=== PATIENT | female | born 1980 | race Caucasian/White ===

== ENCOUNTER 2019-09-12 15:10 | Inpatient (IN) | payer BC ==
[2019-09-12] MEDS ORDERED: SODIUM CHLORIDE 0.9% 500 ML 500 ML IV STA (15:40)
[2019-09-12] MEDS ORDERED: SODIUM CHLORIDE 0.9% 1,000 ML IV STA ×2 (15:40)
[2019-09-12 16:04] LABS: Basophils # (A) 0.1 k/uL (0-0.2); Basophils % (A) 0 %; Eosinophils # (A) 0.2 k/uL (0-0.7); Eosinophils % (A) 1 %; HCT 38.9 % (34.0-46.0); HGB 12.6 gm/dL (11.4-16.0); Lymphocytes % (A) 10 %; MCH 29.2 pg (25.0-35.0); MCHC 32.4 g/dL (31.0-37.0); MCV 90.2 fL (80.0-100.0); Monocytes # (A) 0.9 k/uL (0-1.0); Monocytes % (A) 4 %; Neutrophils # (A) 16.1 k/uL (1.3-7.7); Neutrophils % (A) 82 %; Platelet Count 483 k/uL (150-450); RBC 4.31 m/uL (3.80-5.40); RDW 12.5 % (11.5-15.5); WBC 19.7 k/uL (3.8-10.6)
[2019-09-12 16:18] LABS: ALT 23 U/L (4-34); AST 25 U/L (14-36); African American GFR (CKD) >90 (>60 ml/min/1.73 sqM); Albumin 3.8 g/dL (3.5-5.0); Alkaline Phosphatase 94 U/L (38-126); Anion Gap 9 mmol/L; Blood Urea Nitrogen 8 mg/dL (7-17); Calcium 8.9 mg/dL (8.4-10.2); Carbon Dioxide 24 mmol/L (22-30); Chloride 103 mmol/L (98-107); Glucose 82 mg/dL (74-99); Non-African American GFR(CKD) >90 (>60 ml/min/1.73 sqM); Potassium 4.7 mmol/L (3.5-5.1); Sodium 136 mmol/L (137-145); Total Bilirubin 0.4 mg/dL (0.2-1.3); Total Protein 7.8 g/dL (6.3-8.2)
[2019-09-12 16:25] LABS: Appearance,Urine Clear (Clear); Bilirubin,Urine Negative (Negative); Blood,Urine Moderate (Negative); Color,Urine Yellow; Glucose,Urine (UA) Negative (Negative); Ketones,Urine Negative (Negative); Leukocyte Esterase,Urine Large (Negative); Nitrite,Urine Negative (Negative); Protein,Urine 1+ (Negative); Specific Gravity,Urine 1.015 (1.001-1.035)
[2019-09-12 16:27] LABS: Hyaline Casts,Urine 1 /lpf (0-2); Mucus,Urine Few /hpf; RBC,Urine 1 /hpf (0-5); Squamous Epithelial Cell,Urine 3 /hpf (0-4); WBC,Urine 3 /hpf (0-5)
[2019-09-12] MEDS ORDERED: SODIUM CHLORIDE 0.9% 500 ML 500 ML IV ONE (16:34)
--- NOTE | 2019-09-12 17:21 | XR ---
EXAMINATION TYPE: XR chest 2V DATE OF EXAM: 09/12/2019 COMPARISON: None HISTORY: 38-year-old female with fever TECHNIQUE: PA and lateral views FINDINGS: The cardiomediastinal silhouette, aorta, and pulmonary vasculature are within normal limits. Lungs an d pleural spaces are clear. IMPRESSION: No acute cardiopulmonary process.
--- NOTE | 2019-09-12 17:21 | CT ---
EXAMINATION TYPE: CT abdomen pelvis w con DATE OF EXAM: 09/12/2019 COMPARISON: NONE HISTORY: 38-year-old female with fever after tubal ligation and ablation on 09/01/19. TECHNIQUE: Contiguous axial scanning of the abdomen and pelvis following administration of 100 ml Iso lana 300 IV contrast. Delayed images through the kidneys and coronal/sagittal reconstructions perform ed. CT DLP: 516.6 mGycm Automated exposure control for dose reduction was used. FINDINGS: Heart normal size without pericardial effusion. Tiny hiatal hernia. Lung bases clear without pleural effusion. No focal liver lesion or biliary ductal dilatation. Portal venous system is patent. Gallbladder, adrenal glands, kidneys, spleen, and pancreas appear within normal limits. Prominent fluid-filled small bowel loops throughout the abdomen. There is a thickened loop of jejunum in the left upper to mid abdomen is distended up to 2.8 cm. Scattered prominent mesenteric lymph nodes measuring up to 6 mm likely reactive. Moderate to severe wall thickening of the distal sigmoid and upper rectum, for example, refer to axia l image 66. The fat plane becomes poorly (refer axial image 52) defined between the distal sigmoid an d an abnormal multilocular fluid and inflamed soft tissue collection in the right adnexa which measur es 4.5 cm wide by 6.0 cm AP by 3.3 cm craniocaudal. Uterus is anteverted. Bilateral tubal ligation clips. Left ovary is visualized. Right ovary not clear ly delineated from the inflammatory changes in the right adnexa. Small of cul-de-sac free fluid. No f ree air seen. Bones: No osseous destructive process. IMPRESSION: 1. ABNORMAL MULTILOCULAR COLLECTION OF FLUID AND THICKENED, INFLAMED SOFT TISSUE LOCATED IN THE RIGHT ADNEXA. A COMPLEX ABSCESS MEASURING 6.0 X 4.5 X 3.3 CM IS SUGGESTED. 2. ADJACENT WALL THICKENING OF THE DISTAL SIGMOID AND UPPER RECTUM. THIS MAY BE REACTIVE INFLAMMATION . CORRELATE TO EXCLUDE THE POSSIBILITY OF BOWEL INJURY THERE IS LOSS OF THE FAT PLANE BETWEEN THE INFLAMMATORY COLLECTION AND THE DISTAL SIGMOID. NO FREE AIR. 3. BILATERAL TUBAL LIGATION CLIPS. 4. GENERALIZED SMALL BOWEL ILEUS.
[2019-09-12] MEDS ORDERED: PIPERACILLIN-TAZOBACTAM 3.375 GM in SODIUM CHLORIDE 0.9% 100 ML IVPB STA (17:30)
[2019-09-12] MEDS ORDERED: NALOXONE 0.4 MG/ML 1 ML VIAL IV PRN (17:43)
--- NOTE | 2019-09-12 17:53 | ED ---
Abdominal Pain HPI - General Chief Complaint: Abdominal Pain Stated Complaint: Fever Time Seen by Provider: 09/12/19 15:37 Source: patient Mode of arrival: ambulatory Limitations: no limitations - History of Present Illness Initial Comments: 38-year old presents today for chief complaint of lower abdominal fullness and low back pain fever 11 days. Patient states she had operation approximately 11 days ago she states that she had a tubal ligation as well as an uterine ablation. Patient states that 2 days after the procedure she developed a fever. 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 She recently prescribed patient Levoquin. Patient states that she has persistent discomfort in the lower abdomen denies severe pain. Admits to fever or chills general malaise, nausea when fever elevated. Patient has no additional complaints. No upper abdominal pain, chest pain or SOB. Patient denies upper respiratory symptoms. - Related Data Allergies Allergy/AdvReac Type Severity Reaction Status Date / Time No Known Allergies Allergy Verified 09/12/19 15:28 Review of Systems ROS Statement: Those systems with pertinent positive or pertinent negative responses have been documented in the HPI. ROS Other: All systems not noted in ROS Statement are negative. Past Medical History Past Medical History: Hyperlipidemia History of Any Multi-Drug Resistant Organisms: None Reported Past Surgical History: Tonsillectomy, Tubal Ligation Additional Past Surgical History / Comment(s): ablation Past Psychological History: Depression Smoking Status: Never smoker Past Alcohol Use History: None Reported Past Drug Use History: None Reported General Exam - General Exam Comments Initial Comments: General: The patient is awake and alert, in no distress, and does not appear acutely ill. Eye: +3 mm pupils are equal, round and reactive to light, extra-ocular movements are intact. No nystagmus. There is normal conjunctiva bilaterally. No signs of icterus. Ears, nose, mouth and throat: There are moist mucous membranes and no oral lesions. Neck: The neck is supple, there is no tenderness or JVD. Cardiovascular: There is a regular rate and rhythm. No murmur, rub or gallop is appreciated. Respiratory: Lungs are clear to auscultation, respirations are non-labored, breath sounds are equal. No wheezes, stridor, rales, or rhonchi. Gastrointestinal: Soft, non-distended, fused bilateral lower abdominal tenderness to palpation of the abdomen without masses or organomegaly noted. There is no rebound or guarding present. Musculoskeletal: Normal ROM, no tenderness. Strength 5/5. Sensation intact. Pulses equal bilaterally 2+. Neurological: A&O x 3. CN II-XII intact grossly, There are no obvious motor or sensory deficits. Coordination appears grossly intact. Speech is normal. Skin: Skin is warm and dry and no rashes or lesions are noted. Psychiatric: Cooperative, appropriate mood & affect, normal judgment. Limitations: no limitations Course Vital Signs 09/12/19 09/12/19 15:28 17:29 Temperature 100 F H 99 F Pulse Rate 107 H 98 Respiratory 18 18 Rate Blood Pressure 136/86 122/78 O2 Sat by Pulse 99 97 Oximetry Medical Decision Making - Medical Decision Making Leukocytosis. CT revealed large adnexal abscess looks like there is a decent inflammation of the colon. Patient states she had diarrhea approximately5 days ago after keflex but this subsided. Patient given IV abx, fluids in the ER. Remains stable. Evaluated by my attending provider who spoke with ROUGHER MACHINE OPERATOR who is agreeable to current care plan and admission requesting ultrasound. Patient agreeable to admission. - Lab Data Result diagrams: 09/12/19 15:52 09/12/19 15:52 Lab Results 09/12/19 09/12/19 09/12/19 Range/Units 15:52 15:52 15:52 WBC 19.7 H (3.8-10.6) k/uL RBC 4.31 (3.80-5.40) m/uL Hgb 12.6 (11.4-16.0) gm/dL Hct 38.9 (34.0-46.0) % MCV 90.2 (80.0-100.0) fL MCH 29.2 (25.0-35.0) pg MCHC 32.4 (31.0-37.0) g/dL RDW 12.5 (11.5-15.5) % Plt Count 483 H (150-450) k/uL Neutrophils % 82 % Lymphocytes % 10 % Monocytes % 4 % Eosinophils % 1 % Basophils % 0 % Neutrophils # 16.1 H (1.3-7.7) k/uL Lymphocytes # 2.0 (1.0-4.8) k/uL Monocytes # 0.9 (0-1.0) k/uL Eosinophils # 0.2 (0-0.7) k/uL Basophils # 0.1 (0-0.2) k/uL Sodium 136 L (137-145) mmol/L Potassium 4.7 (3.5-5.1) mmol/L Chloride 103 (98-107) mmol/L Carbon Dioxide 24 (22-30) mmol/L Anion Gap 9 mmol/L BUN 8 (7-17) mg/dL Creatinine 0.52 (0.52-1.04) mg/dL Est GFR (CKD-EPI)AfAm >90 (>60 ml/min/1.73 sqM) Est GFR (CKD-EPI)NonAf >90 (>60 ml/min/1.73 sqM) Glucose 82 (74-99) mg/dL Plasma Lactic Acid Martir 0.8 (0.7-2.0) mmol/L Calcium 8.9 (8.4-10.2) mg/dL Total Bilirubin 0.4 (0.2-1.3) mg/dL AST 25 (14-36) U/L ALT 23 (4-34) U/L Alkaline Phosphatase 94 (38-126) U/L Total Protein 7.8 (6.3-8.2) g/dL Albumin 3.8 (3.5-5.0) g/dL Urine Color Urine Appearance (Clear) Urine pH (5.0-8.0) Ur Specific [place] (1.001-1.035) Urine Protein (Negative) Urine Glucose (UA) (Negative) Urine Ketones (Negative) Urine Blood (Negative) Urine Nitrite (Negative) Urine Bilirubin (Negative) Urine Urobilinogen (<2.0) mg/dL Ur Leukocyte Esterase (Negative) Urine RBC (0-5) /hpf Urine WBC (0-5) /hpf Ur Squamous Epith Cells (0-4) /hpf Hyaline Casts (0-2) /lpf Urine Mucus (None) /hpf 09/12/19 Range/Units 16:00 WBC (3.8-10.6) k/uL RBC (3.80-5.40) m/uL Hgb (11.4-16.0) gm/dL Hct (34.0-46.0) % MCV (80.0-100.0) fL MCH (25.0-35.0) pg MCHC (31.0-37.0) g/dL RDW (11.5-15.5) % Plt Count (150-450) k/uL Neutrophils % % Lymphocytes % % Monocytes % % Eosinophils % % Basophils % % Neutrophils # (1.3-7.7) k/uL Lymphocytes # (1.0-4.8) k/uL Monocytes # (0-1.0) k/uL Eosinophils # (0-0.7) k/uL Basophils # (0-0.2) k/uL Sodium (137-145) mmol/L Potassium (3.5-5.1) mmol/L Chloride (98-107) mmol/L Carbon Dioxide (22-30) mmol/L Anion Gap mmol/L BUN (7-17) mg/dL Creatinine (0.52-1.04) mg/dL Est GFR (CKD-EPI)AfAm (>60 ml/min/1.73 sqM) Est GFR (CKD-EPI)NonAf (>60 ml/min/1.73 sqM) Glucose (74-99) mg/dL Plasma Lactic Acid Martir (0.7-2.0) mmol/L Calcium (8.4-10.2) mg/dL Total Bilirubin (0.2-1.3) mg/dL AST (14-36) U/L ALT (4-34) U/L Alkaline Phosphatase (38-126) U/L Total Protein (6.3-8.2) g/dL Albumin (3.5-5.0) g/dL Urine Color Yellow Urine Appearance Clear (Clear) Urine pH 6.0 (5.0-8.0) Ur Specific [place] 1.015 (1.001-1.035) Urine Protein 1+ H (Negative) Urine Glucose (UA) Negative (Negative) Urine Ketones Negative (Negative) Urine Blood Moderate (Negative) Urine Nitrite Negative (Negative) Urine Bilirubin Negative (Negative) Urine Urobilinogen 2.0 (<2.0) mg/dL Ur Leukocyte Esterase Large (Negative) Urine RBC 1 (0-5) /hpf Urine WBC 3 (0-5) /hpf Ur Squamous Epith Cells 3 (0-4) /hpf Hyaline Casts 1 (0-2) /lpf Urine Mucus Few H (None) /hpf Disposition Clinical Impression: Intra-abdominal abscess, Post-operative complication Disposition: ADMITTED IP TO THIS HOSP Condition: Stable Is patient prescribed a controlled substance at d/c from ED?: No Referrals: None,Stated [Primary Care Provider] - 1-2 days Time of Disposition: 17:43 Decision to Admit Reason: Admit from EC Decision Date: 09/12/19 Decision Time: 17:43
[2019-09-12] MEDS: ACETAMINOPHEN TAB 325 MG TAB PO PRN (18:27)
--- NOTE | 2019-09-12 19:43 | US ---
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 Post endometrial ablation via endova ginal approach and tubal ligation vie laparoscopy 09/01/2019. Fever since 09/03/19 with right lower la teral quadrant pain. TECHNIQUE: Transabdominal (TA). Transabdominal sonographic images of the pelvis were acquired. Col or Doppler spectral waveform analysis of the ovarian arteries and veins. Date of LMP: 08/19/2019 FINDINGS: EXAM MEASUREMENTS: Uterus: 8.7 x 8.6 x 4.7 cm Endometrial Stripe: Not clearly delineated. 0.3 mm upper uterus noted as echogenic linear structure m id fundal area. No abnormal fluid collection seen within the uterine cavity. Right Ovary: 6.0 x 4.3 x 3.4 cm tubo/ ovarian area Left Ovary: 3.6 x 2.3 x 1.7 cm 1. Uterus: Anteverted 2. Endometrium: A thin 9 x 4 x 3 mm sliver fluid is seen along the central uterine cavity. Sonographe r notes: Hypoechoic area surrounding central fluid may be post surgical reactionary tissue 3. Right Ovary: enlarged, complex tubo/ovarian area with ovarian follicles also noted; largest folli cular cyst =2.3 x 2.2 x 1.6cm 4. Left Ovary: small follicles noted Spectral, color and waveform Doppler imaging shows good arterial and venous flow within the ovaries ; there is no evidence for ovarian torsion. 5. Bilateral Adnexa: possible right tubo/ovarian abscess noted as complex area associated with right ovary 6. Posterior cul-de-sac: wnl IMPRESSION: 1. Complex, heterogeneous, hyperemic area within the right adnexa associated with the right ovary lamine suring 6.0 x 4.3 x 3.4 cm suspicious for tubo-ovarian abscess. 2. Trace sliver of fluid within the central uterine cavity post ablation. Follow-up as clinically ind icated. 3. Satisfactory arterial and venous flow in both ovaries. No sonographic evidence for ovarian torsion .
[2019-09-12] MEDS: DOXYCYCLINE 100 MG CAP PO SCH (22:35)
[2019-09-12] MEDS: AMPICILLIN-SULBACTAM 3 GM in SODIUM CHLORIDE 0.9% 100 ML IVPB SCH (23:29)
[2019-09-13] MEDS: AMPICILLIN-SULBACTAM 3 GM in SODIUM CHLORIDE 0.9% 100 ML IVPB SCH ×3 (05:22→17:52)
[2019-09-13 06:31] LABS: Basophils % (A) 0 %; Eosinophils # (A) 0.1 k/uL (0-0.7); Eosinophils % (A) 1 %; HCT 33.8 % (34.0-46.0); HGB 11.3 gm/dL (11.4-16.0); Lymphocytes # (A) 1.8 k/uL (1.0-4.8); Lymphocytes % (A) 12 %; MCH 30.5 pg (25.0-35.0); MCHC 33.5 g/dL (31.0-37.0); MCV 91.1 fL (80.0-100.0); Monocytes # (A) 0.7 k/uL (0-1.0); Monocytes % (A) 5 %; Neutrophils # (A) 11.7 k/uL (1.3-7.7); Neutrophils % (A) 80 %; Platelet Count 455 k/uL (150-450); RBC 3.71 m/uL (3.80-5.40); RDW 12.5 % (11.5-15.5); WBC 14.6 k/uL (3.8-10.6)
[2019-09-13] MEDS: DOXYCYCLINE 100 MG CAP PO SCH ×2 (08:04→20:47)
--- NOTE | 2019-09-13 10:41 | P.HPOB ---
History of Present Illness H&P Date: 09/13/19 Chief Complaint: Fevers postoperative This is a 38-year-old female 4 para 3013 who presented to the emergency room after she continued to have fevers postoperatively from a laparoscopic tubal ligation with dilation and curettage and endometrial ablation on 09/01/2019. Her surgery was performed by Dr. Candy Bach from [place], [place]. She did contact her doctor 2 days after surgery when she was spiking fevers to 101. She was told to monitor but then she did go into the office to be seen on September 06 and was having a temperature of 102. Her urine was clear but they did still think she might have a UTI and she was given 1 dose of IM Rocephin and started on Keflex for 3 days. She completed the Keflex this past and went in to see her doctor on afternoon due to continued fevers. She saw a nurse practitioner and they started her on Flagyl and Levaquin. Throughout this time she did not have any significant pain but just a pressure feeling in her lower abdomen. She was urinating okay but did notice a little less amount of urine. She did have a normal bowel movement on Saturday morning. The only time she had nausea was when she was taking the Flagyl. She has not had any further vaginal discharge since . She denies any intercourse since surgery. She denies any history of sexual transmitted diseases but does have a history of bacterial vaginosis. Obstetrical history: 013. History of 1 ectopic in the right tube for which she received methotrexate 13 or 14 years ago. She is also had a history of 3 vaginal deliveries. 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 She does share custody of her children with her first who lives in [place] and the custody arrangement is such that she cannot take her children out of [place]. She therefore commutes between both states to live with her new in [place]. It is usually about a week at a time. Review of Systems Constitutional: Reports fever Eyes: denies blurred vision, denies pain Ears, nose, mouth and throat: Denies headache, Denies sore throat Cardiovascular: Denies chest pain, Denies shortness of breath Respiratory: Denies cough Gastrointestinal: Reports abdominal pain (Minimal pain but noticing some pressure in her lower abdomen and more on the right side), Denies change in bowel habits Genitourinary: Reports pelvic pain, Denies abnormal vaginal bleeding, Denies urgency, Denies urinary frequency Musculoskeletal: Denies myalgias Integumentary: Denies pruritus, Denies rash Neurological: Denies numbness, Denies weakness Psychiatric: Reports anxiety Past Medical History Past Medical History: Hyperlipidemia History of Any Multi-Drug Resistant Organisms: None Reported Past Surgical History: Tonsillectomy, Tubal Ligation, Uterine Ablation Additional Past Surgical History / Comment(s): Laparoscopic tubal ligation with endometrial ablation and D&C on 09/01/2019. History of exploratory laparotomy with appendectomy at age 5 days old. Past Anesthesia/Blood Transfusion Reactions: No Reported Reaction Past Psychological History: Anxiety Smoking Status: Never smoker - Past Family History Mother Family Medical History: Hyperlipidemia, Hypertension Additional Family Medical History / Comment(s): Depression Medications and Allergies Home Medications Medication Instructions Recorded Confirmed Type Ezetimibe [Zetia] 10 mg PO DAILY 09/12/19 09/12/19 History Levofloxacin [Levaquin] 500 mg PO HS 09/12/19 09/12/19 History Vortioxetine Hydrobromide 10 mg PO HS 09/12/19 09/12/19 History [Trintellix] busPIRone HCl [Buspar] 5 mg PO TID PRN 09/12/19 09/12/19 History metroNIDAZOLE [Flagyl] 500 mg PO BID 09/12/19 09/12/19 History Allergies Allergy/AdvReac Type Severity Reaction Status Date / Time No Known Allergies Allergy Verified 09/12/19 18:52 Exam Osteopathic Statement: *. No significant issues noted on an osteopathic structural exam other than those noted in the History and Physical/Consult. Vital Signs Temp Pulse Pulse Pulse Resp BP BP 09/13/19 07:00 98.4 F 87 18 112/75 09/13/19 05:29 98.6 F 103 H 16 117/74 09/12/19 23:00 98.3 F 85 18 116/71 09/12/19 20:51 98.6 F 100 16 09/12/19 18:38 100.4 F H 98 16 122/73 09/12/19 17:29 99 F 98 18 122/78 09/12/19 15:28 100 F H 107 H 18 136/86 Pulse Ox 09/13/19 07:00 100 09/13/19 05:29 98 09/12/19 23:00 100 09/12/19 20:51 98 09/12/19 18:38 100 09/12/19 17:29 97 09/12/19 15:28 99 Intake and Output 09/12/19 09/13/19 09/13/19 22:59 06:59 14:59 Other: # Voids 2 2 1 Weight 50.4 kg Gen.: Well-developed well-nourished female in no acute distress HEENT: Within normal limits Heart: Regular rate and rhythm Lungs: Clear to auscultation bilaterally - OBG Physical Exam Abdomen: Laparoscopy scar visualized at the umbilicus, no apparent infection. Abdomen: bowel sounds normal Abdomen detail: right lower quadrant: mass (Fullness palpated in the right lower quadrant), tenderness (Mild tenderness in the right lower quadrant and suprapubically.) Vagina: discharge (Scant yellow brown on glove.) Uterus: enlarged (Slightly enlarged with mild tenderness on the fundus and with cervical motion), tender (Mild) Adnexa: right: mass (Fullness noted), tenderness (Mild) Results Result Diagrams: 09/13/19 05:23 09/12/19 15:52 Abnormal Lab Results - Last 24 Hours (Table) 09/12/19 09/12/19 09/12/19 Range/Units 15:52 15:52 16:00 WBC 19.7 H (3.8-10.6) k/uL RBC (3.80-5.40) m/uL Hgb (11.4-16.0) gm/dL Hct (34.0-46.0) % Plt Count 483 H (150-450) k/uL Neutrophils # 16.1 H (1.3-7.7) k/uL Sodium 136 L (137-145) mmol/L Urine Protein 1+ H (Negative) Urine Mucus Few H (None) /hpf 09/13/19 Range/Units 05:23 WBC 14.6 H (3.8-10.6) k/uL RBC 3.71 L (3.80-5.40) m/uL Hgb 11.3 L (11.4-16.0) gm/dL Hct 33.8 L (34.0-46.0) % Plt Count 455 H (150-450) k/uL Neutrophils # 11.7 H (1.3-7.7) k/uL Sodium (137-145) mmol/L Urine Protein (Negative) Urine Mucus (None) /hpf Chest x-ray: report reviewed CT scan - abdomen: report reviewed CT scan - pelvis: report reviewed US - abdomen: report reviewed Assessment and Plan (1) Intra-abdominal abscess Current Visit: Yes Status: Acute Code(s): K65.1 - PERITONEAL ABSCESS SNOMED Code(s): 33065174 (2) Post-operative complication Current Visit: Yes Status: Acute Code(s): T81.9XXA - UNSPECIFIED COMPLICATION OF PROCEDURE, INITIAL ENCOUNTER SNOMED Code(s): 449187519 Plan: Will continue with Unasyn and doxycycline. The region of surgery recommendations. Most likely will observe on IV antibiotics for 24-48 hours. Possible radiologic drainage of abscess if it appears possible. May have a regular diet once cleared by Gen. surgery. All questions answered. Patient is in agreement with plan.
--- NOTE | 2019-09-13 11:23 | P.GSCN ---
History of Present Illness Consult date: 09/13/19 Reason for Consult: Pelvic abscess History of present illness: 38-year-old female underwent tubal ligation laparoscopically with D&C and endome trial ablation on 08/31. Following that the patient has had difficulties with intermittent fevers and lower abdominal pain along with pressure. Patient has been on oral antibiotics as an outpatient for suspected urinary infection. She has not had improvement in her symptoms for the most part. Patient is ambulating in the room and sitting upright without apparent discomfort. States her pain is improved today. White blood cell count was 19.7 today it is 14.6. T-max 100.4. Patient believes the tubal ligation was performed prior to the ablation. Patient goes back and forth to [place] and her surgery was actually performed in [place]. She is going back there this coming weekend. Patient admitted to the gynecologic service. CAT scan shows a multiloculated fluid collection right adnexa suspicious for hematoma or abscess. Patient denies nausea or vomiting. No bowel related issues. Review of Systems The patient denies any acute changes in vision or hearing, no dysphagia or odynophagia, no chest pain or shortness of breath, no dysuria or hematuria, no headache, no runny nose, no rectal bleeding or melena, no unexplained weight loss Past Medical History Past Medical History: Hyperlipidemia History of Any Multi-Drug Resistant Organisms: None Reported Past Surgical History: Tonsillectomy, Tubal Ligation, Uterine Ablation Additional Past Surgical History / Comment(s): Laparoscopic tubal ligation with endometrial ablation and D&C on 09/01/2019. History of exploratory laparotomy with appendectomy at age 5 days old. Past Anesthesia/Blood Transfusion Reactions: No Reported Reaction Past Psychological History: Anxiety Smoking Status: Never smoker - Past Family History Mother Family Medical History: Hyperlipidemia, Hypertension Additional Family Medical History / Comment(s): Depression Medications and Allergies Home Medications Medication Instructions Recorded Confirmed Type Ezetimibe [Zetia] 10 mg PO DAILY 09/12/19 09/12/19 History Levofloxacin [Levaquin] 500 mg PO HS 09/12/19 09/12/19 History Vortioxetine Hydrobromide 10 mg PO HS 09/12/19 09/12/19 History [Trintellix] busPIRone HCl [Buspar] 5 mg PO TID PRN 09/12/19 09/12/19 History metroNIDAZOLE [Flagyl] 500 mg PO BID 09/12/19 09/12/19 History Allergies Allergy/AdvReac Type Severity Reaction Status Date / Time No Known Allergies Allergy Verified 09/12/19 18:52 Surgical - Exam Vital Signs Temp Pulse Resp BP Pulse Ox 100 F H 107 H 18 136/86 99 09/12/19 15:28 09/12/19 15:28 09/12/19 15:28 09/12/19 15:28 09/12/19 15:28 Physical exam: General: Well-developed, well-nourished HEENT: Normocephalic, sclerae nonicteric Abdomen: Mild lower abdominal tenderness, nondistended Extremities: No edema Neuro: Alert and oriented Results - Labs 09/13/19 05:23 09/12/19 15:52 Abnormal Lab Results - Last 24 Hours (Table) 09/12/19 09/12/19 09/12/19 Range/Units 15:52 15:52 16:00 WBC 19.7 H (3.8-10.6) k/uL RBC (3.80-5.40) m/uL Hgb (11.4-16.0) gm/dL Hct (34.0-46.0) % Plt Count 483 H (150-450) k/uL Neutrophils # 16.1 H (1.3-7.7) k/uL Sodium 136 L (137-145) mmol/L Urine Protein 1+ H (Negative) Urine Mucus Few H (None) /hpf 09/13/19 Range/Units 05:23 WBC 14.6 H (3.8-10.6) k/uL RBC 3.71 L (3.80-5.40) m/uL Hgb 11.3 L (11.4-16.0) gm/dL Hct 33.8 L (34.0-46.0) % Plt Count 455 H (150-450) k/uL Neutrophils # 11.7 H (1.3-7.7) k/uL Sodium (137-145) mmol/L Urine Protein (Negative) Urine Mucus (None) /hpf Diabetes panel 09/12/19 Range/Units 15:52 Sodium 136 L (137-145) mmol/L Potassium 4.7 (3.5-5.1) mmol/L Chloride 103 (98-107) mmol/L Carbon Dioxide 24 (22-30) mmol/L BUN 8 (7-17) mg/dL Creatinine 0.52 (0.52-1.04) mg/dL Glucose 82 (74-99) mg/dL Calcium 8.9 (8.4-10.2) mg/dL AST 25 (14-36) U/L ALT 23 (4-34) U/L Alkaline Phosphatase 94 (38-126) U/L Total Protein 7.8 (6.3-8.2) g/dL Albumin 3.8 (3.5-5.0) g/dL Calcium panel 09/12/19 Range/Units 15:52 Calcium 8.9 (8.4-10.2) mg/dL Albumin 3.8 (3.5-5.0) g/dL Pituitary panel 09/12/19 Range/Units 15:52 Sodium 136 L (137-145) mmol/L Potassium 4.7 (3.5-5.1) mmol/L Chloride 103 (98-107) mmol/L Carbon Dioxide 24 (22-30) mmol/L BUN 8 (7-17) mg/dL Creatinine 0.52 (0.52-1.04) mg/dL Glucose 82 (74-99) mg/dL Calcium 8.9 (8.4-10.2) mg/dL Adrenal panel 09/12/19 Range/Units 15:52 Sodium 136 L (137-145) mmol/L Potassium 4.7 (3.5-5.1) mmol/L Chloride 103 (98-107) mmol/L Carbon Dioxide 24 (22-30) mmol/L BUN 8 (7-17) mg/dL Creatinine 0.52 (0.52-1.04) mg/dL Glucose 82 (74-99) mg/dL Calcium 8.9 (8.4-10.2) mg/dL Total Bilirubin 0.4 (0.2-1.3) mg/dL AST 25 (14-36) U/L ALT 23 (4-34) U/L Alkaline Phosphatase 94 (38-126) U/L Total Protein 7.8 (6.3-8.2) g/dL Albumin 3.8 (3.5-5.0) g/dL Assessment and Plan (1) Intra-abdominal abscess Narrative/Plan: 38-year-old female with right adnexal multiloculated fluid collection consistent with abscess or infected hematoma. Agree with conservative management at this time. Continue broad-spectrum antibiotics. We'll discuss with interventional radiology regarding possible drainage although given the size and loculation in addition to the challenging location I do not believe that will be viable option. Resume diet at this time. We'll follow with you. Hopefully can discharge home tomorrow on broad-spectrum antibiotics. Follow up with her quality nurse when she returns to [place]. Current Visit: Yes Status: Acute Code(s): K65.1 - PERITONEAL ABSCESS SNOMED Code(s): 58401520
[2019-09-14] MEDS: AMPICILLIN-SULBACTAM 3 GM in SODIUM CHLORIDE 0.9% 100 ML IVPB SCH ×2 (00:02→06:06)
[2019-09-14 07:51] LABS: Basophils % (A) 0 %; Eosinophils # (A) 0.2 k/uL (0-0.7); Eosinophils % (A) 2 %; HCT 38.5 % (34.0-46.0); HGB 12.2 gm/dL (11.4-16.0); Lymphocytes # (A) 2.1 k/uL (1.0-4.8); Lymphocytes % (A) 21 %; MCH 28.7 pg (25.0-35.0); MCHC 31.6 g/dL (31.0-37.0); MCV 90.9 fL (80.0-100.0); Mean Platelet Volume 6.9; Monocytes # (A) 0.5 k/uL (0-1.0); Monocytes % (A) 5 %; Neutrophils % (A) 70 %; Platelet Count 514 k/uL (150-450); RBC 4.23 m/uL (3.80-5.40); RDW 12.5 % (11.5-15.5)
[2019-09-14] MEDS: ACETAMINOPHEN TAB 325 MG TAB PO PRN (08:46)
[2019-09-14] MEDS: DOXYCYCLINE 100 MG CAP PO SCH (08:46)
--- NOTE | 2019-09-14 09:02 | P.DS ---
Providers Date of admission: 09/12/19 17:51 Expected date of discharge: 09/14/19 Attending physician: Erna Huynh Consults: 09/12/19 18:33 Consult Physician Routine Consulting Provider: Naun Starks Consult Reason/Comments: abdominal abscess Do you want consulting provider notified?: Yes Primary care physician: Stated None - Discharge Diagnosis(es) (1) Intra-abdominal abscess Current Visit: Yes Status: Acute (2) Post-operative complication Current Visit: Yes Status: Acute Hospital Course: This is a 38-year-old female status post laparoscopic tubal ligation with endometrial ablation postoperative approximate 2 weeks, who presented with persistent fevers and abdominal discomfort. She was diagnosed with a right tubo-ovarian abscess. She was started on IV Unasyn and oral doxycycline. Her white count went from 19,000 down to 10. She is been afebrile since admission. She is starting to have a little more discomfort in her pelvic region today and has been using Tylenol for pain. Vital signs are stable she is afebrile. Abdomen is soft with less firmness in the right lower quadrant area and minimal tenderness noted. Impression is right tubo-ovarian abscess, status post over 24 hours of IV antibiotics. Plan is to discharge home today. She will continue on doxycycline for a total of 14 days and she will finish up her Flagyl that she had already started prior to coming into the hospital. I have advised her to follow up with her [facility] in [place] next week and to follow-up with me in 2 weeks. She is agreeable to this plan and understands she should return to the hospital if any new fevers, severe pain, or other concerns. Pertinent Studies: Pelvic CT and ultrasound Patient Condition at Discharge: Stable Plan - Discharge Summary New Discharge Prescriptions: New Acetaminophen Tab [Tylenol] 650 mg PO Q6HR PRN tab PRN Reason: Mild Pain Or Fever > 100.5 Doxycycline [Vibramycin] 100 mg PO BID #24 cap Continue metroNIDAZOLE [Flagyl] 500 mg PO BID busPIRone HCl [Buspar] 5 mg PO TID PRN PRN Reason: Anxiety Vortioxetine Hydrobromide [Trintellix] 10 mg PO HS Ezetimibe [Zetia] 10 mg PO DAILY Discontinued Levofloxacin [Levaquin] 500 mg PO HS Discharge Medication List Ezetimibe [Zetia] 10 mg PO DAILY 09/12/19 [History] Vortioxetine Hydrobromide [Trintellix] 10 mg PO HS 09/12/19 [History] busPIRone HCl [Buspar] 5 mg PO TID PRN 09/12/19 [History] metroNIDAZOLE [Flagyl] 500 mg PO BID 09/12/19 [History] Acetaminophen Tab [Tylenol] 650 mg PO Q6HR PRN tab 09/14/19 [Rx] Doxycycline [Vibramycin] 100 mg PO BID #24 cap 09/14/19 [Rx] Follow up Appointment(s)/Referral(s): Erna Huynh DO [Doctor of Osteopathic Medicine] - 2 Weeks None,Stated [Primary Care Provider] - 1 Week (Follow up with her [facility] in 1 week) Activity/Diet/Wound Care/Special Instructions: Activity as tolerated. Avoid intercourse at this time. Return to the hospital if high fevers, increased severe pain, or other concerns. Discharge Disposition: HOME SELF-CARE
[2019-09-14 09:08] VITALS: BP 113/75; PULSE 87; RESP 18; TEMP 98
--- NOTE | 2019-09-14 09:54 | P.PN ---
<ShaheenMaria Luz Robby - Last Filed: 09/14/19 09:48> Subjective Progress Note Date: 09/14/19 CHIEF COMPLAINT: Pelvic abscess HISTORY OF PRESENT ILLNESS: Patient seen and examined this morning. She reports she has some abdominal soreness in the lower part of her abdomen and into her back. WBC 10.0. Vital signs stable. PHYSICAL EXAM: VITAL SIGNS: Reviewed. GENERAL: Well-developed in no acute distress. HEENT: No sclera icterus. Extraocular movements grossly intact. Moist buccal mucosa. Head is atraumatic, normocephalic. ABDOMEN: Soft. Nondistended. Mild lower abdominal tenderness. NEUROLOGIC: Alert and oriented. Cranial nerves II through XII grossly intact. ASSESSMENT: 1. Pelvic abscess PLAN: Order has been placed for discharge home today per Dr. Huynh. Agreeable for discharge on oral antibiotics. Patient to follow up with her [facility] [employer] in [place] post discharge. Nurse practitioner note has been reviewed by physician. Signing provider agrees with the documented findings, assessment, and plan of care. Objective - Vital Signs Vital signs: Vital Signs Temp 98 F 09/14/19 09:07 Pulse 87 09/14/19 09:07 Resp 18 09/14/19 09:07 BP 113/75 09/14/19 09:07 Pulse Ox 100 09/14/19 09:07 Intake & Output 09/13/19 09/14/19 09/14/19 18:59 06:59 18:59 Intake Total 400 Balance 400 Intake: Oral 400 Other: # Voids 1 1 # Bowel Movements 1 - Labs CBC & Chem 7: 09/14/19 07:28 09/12/19 15:52 Labs: Abnormal Lab Results - Last 24 Hours (Table) 09/14/19 Range/Units 07:28 Plt Count 514 H (150-450) k/uL Microbiology - Last 24 Hours (Table) 09/12/19 15:52 Blood Culture - Preliminary Blood No Growth after 24 hours <Naun Starks - Last Filed: 09/14/19 11:16> Subjective As above. Stable for discharge. Follow-up with gynecology post discharge. Objective - Vital Signs Vital signs: Vital Signs Temp 98 F 09/14/19 09:07 Pulse 87 09/14/19 09:07 Resp 18 09/14/19 09:07 BP 113/75 09/14/19 09:07 Pulse Ox 100 09/14/19 09:07 Intake & Output 09/13/19 09/14/19 09/14/19 18:59 06:59 18:59 Intake Total 400 Balance 400 Intake: Oral 400 Other: # Voids 1 1 # Bowel Movements 1 - Labs CBC & Chem 7: 09/14/19 07:28 09/12/19 15:52 Labs: Abnormal Lab Results - Last 24 Hours (Table) 09/14/19 Range/Units 07:28 Plt Count 514 H (150-450) k/uL Microbiology - Last 24 Hours (Table) 09/12/19 15:52 Blood Culture - Preliminary Blood No Growth after 24 hours Assessment and Plan (1) Intra-abdominal abscess Status: Acute Code(s): K65.1 - PERITONEAL ABSCESS SNOMED Code(s): 80473630
== END 2019-09-14 11:04 | disposition home or self-care (01) | DRG 863 ==
LOC: EC 15:10 → 6PED 17:51
PROVIDERS: ADMIT Obstetrics & Gynecology; ATTEND Obstetrics & Gynecology
DX: T81.43XA Infection following a procedure, organ and space surgical site, initial encounter (principal); N70.93 Salpingitis and oophoritis, unspecified; E78.5 Hyperlipidemia, unspecified; F41.9 Anxiety disorder, unspecified; F32.9 Major depressive disorder, single episode, unspecified; Z20.828 Contact with and (suspected) exposure to other viral communicable diseases; Z79.899 Other long term (current) drug therapy; Z98.51 Tubal ligation status; Z81.8 Family history of other mental and behavioral disorders; Z82.49 Family history of ischemic heart disease and other diseases of the circulatory system
CPT/HCPCS: 36415; 71046; 74177; 76856; 80053; 81001; 83605; 85025; 87040; 93975; 96361; 96365; 99285

== ENCOUNTER → 2022-10-24 | Outpatient (CLI) | payer BC ==
--- NOTE | 2022-10-25 22:52 | MM ---
Reason for Exam: Screening (asymptomatic). Baseline mammogram. Patient History: Menarche at age 15. First Full-Term at age 20. Premenopausal. Risk Values: Nicolle 5 year model risk: 0.4%. NCI Lifetime model risk: 7.3%. Prior Study Comparison: Patient's first Mammogram. Tissue Density: The breast tissue is extremely dense which could obscure a lesion on mammography. Findings: Analyzed By CAD. There is no suspicious group of microcalcifications, significant mass, or other discrete abnormality in either breast. Overall Assessment: Negative, BI-RAD 1 Management: Screening Mammogram of both breasts in 1 year. . Patient should continue monthly self-breast exams. A clinical breast exam by your physician is recommended on an annual basis. This exam should not preclude additional follow-up of suspicious palpable abnormalities. Note on Nicolle scores and lifetime risk: 1. A Nicolle score greater than 3% is considered moderate risk. If this is the case, consider specialist referral to assess eligibility for a risk reducing agent. 2. If overall lifetime risk for the development of breast cancer is 20% or higher, the patient may qualify for future screening with alternating mammogram and breast MRI. Electronically signed and approved by: Martha Malloy M.D. Radiologist
== END | disposition home or self-care (01) ==
LOC: RADMAMWWP 15:56
PROVIDERS: ATTEND Family Medicine
DX: Z12.31 Encounter for screening mammogram for malignant neoplasm of breast (principal)
CPT/HCPCS: 77063; 77067

== ENCOUNTER → 2023-10-29 | Outpatient (CLI) | payer BC ==
--- NOTE | 2023-11-26 09:43 | MM ---
Reason for Exam: Screening (asymptomatic). Last screening mammogram was performed 12 month(s) ago. Patient History: Menarche at age 15. First Full-Term at age 20. Premenopausal. Risk Values: Nicolle 5 year model risk: 0.4%. NCI Lifetime model risk: 7.3%. Prior Study Comparison: 10/24/2022 Bilateral MG 3D screening mammo w/cad, [facility]. Tissue Density: The breasts are extremely dense, which lowers the sensitivity of mammography. Findings: Analyzed By CAD. Right breast: There is no suspicious group of microcalcifications or new suspicious mass. Left breast: There is no suspicious group of microcalcifications or new suspicious mass. Overall Assessment: Negative, BI-RAD 1 Management: Screening Mammogram of both breasts in [address] [facility] will attempt to contact patient to return for supplemental views and ultrasound if indicated. Patient should continue monthly self-breast exams. A clinical breast exam by your physician is recommended on an annual basis. This exam should not preclude additional follow-up of suspicious palpable abnormalities. Note on Nicolle scores and lifetime risk: 1. A Nicolle score greater than 3% is considered moderate risk. If this is the case, consider specialist referral to assess eligibility for a risk reducing agent. 2. If overall lifetime risk for the development of breast cancer is 20% or higher, the patient may qualify for future screening with alternating mammogram and breast MRI. Electronically signed and approved by: Dale Michael DO
== END | disposition home or self-care (01) ==
LOC: RADMAMWWP 14:50
PROVIDERS: ATTEND Family Medicine
DX: Z12.31 Encounter for screening mammogram for malignant neoplasm of breast (principal)
CPT/HCPCS: 77063; 77067